=== PATIENT | male | born 1995 | race Asian ===

== ENCOUNTER 2017-08-13 02:39 | Emergency (ER) | payer OTHER ==
[~2017-08-13] VITALS: Ht 172.7 cm; Wt 83.9 kg
[2017-08-13 03:01] LABS: BASOPHILS % (AUTO) 1.9 % (0.0-2.0); EOSINOPHILS % (AUTO) 13.1 % (0.0-3.0); LYMPHOCYTES % (AUTO) 20.4 % (20.0-45.0); MEAN CORPUSCULAR HGB CONC 34.1 G/DL (32.0-36.0); MEAN CORPUSCULAR VOLUME 94 FL (80-99); MEAN PLATELET VOLUME 7.1 FL (6.5-10.1); MONOCYTES % (AUTO) 12.1 % (1.0-10.0); NEUTROPHILS % (AUTO) 52.6 % (45.0-75.0); PLATELET COUNT 348 K/UL (150-450); RED BLOOD COUNT 4.96 M/UL (4.70-6.10); RED CELL DISTRIBUTION WIDTH 11.6 % (11.6-14.8); WHITE BLOOD COUNT 6.8 K/UL (4.8-10.8)
[2017-08-13 03:07] VITALS: BP 126/73
[2017-08-13 03:11] LABS: ANION GAP 7 mmol/L (5-15); CALCIUM 8.7 MG/DL (8.5-10.1); CARBON DIOXIDE 28 MMOL/L (21-32); CHLORIDE 103 MMOL/L (98-107); CREATININE 0.9 MG/DL (0.55-1.30); GLOMERULAR FILTRATION RATE > 60 mL/min (>60); POTASSIUM 3.4 MMOL/L (3.5-5.1); SODIUM 138 MMOL/L (136-145)
[2017-08-13 03:16] LABS: ALANINE AMINOTRANSFERASE 16 U/L (12-78); ALBUMIN/GLOBULIN RATIO 0.9 (1.0-2.7); ALCOHOL 321 mg/dL; ASPARTATE AMINO TRANSFERASE 19 U/L (15-37); TOTAL PROTEIN 7.6 G/DL (6.4-8.2)
[2017-08-13 03:18] LABS: ACETAMINOPHEN < 2 MCG/ML (10-30)
[2017-08-13] MEDS ORDERED: ACETAMINOPHEN-1 EAC1 ORAL (04:37)
[2017-08-13 04:44] VITALS: BP 126/73
--- NOTE | 2017-08-13 05:23 | Emergency Room Report ---
History of Present Illness General Chief Complaint: Head, Face, Neck Trauma Source: Patient Present Illness HPI 21-year-old male presents ED for evaluation. cousin at bedside states that patient was drinking tonight at a bar and tripped and fell and hit his head. Patient presents with bruising over the right eye and swelling. Patient is unable to provide any additional history at this time. Show no signs of distress upon arrival. No other aggravating or leading factors. No other associated symptoms Allergies: Coded Allergies: EGG (Verified Allergy, Unknown, 08/13/17) LEGUMES (Verified Allergy, Unknown, 08/13/17) Patient History Past Medical History: none Past Surgical History: none Pertinent Family History: none Social History: Reports: alcohol use, Denies: smoking, drug use Immunizations: UTD Reviewed Nursing Documentation: PMH: Agreed, PSxH: Agreed Nursing Documentation-PMH Past Medical History Deferred: Pt Cognitively Impaired Review of Systems All Other Systems: limited Physical Exam Vital Signs Date Time Temp Pulse Resp B/P (MAP) Pulse Ox O2 Delivery O2 Flow Rate FiO2 08/13/17 02:40 97.9 91 16 124/74 67 Room Air Sp02 EP Interpretation: reviewed, normal General Appearance: lethargic, thin Head: other - bruising/swelling R eye Eyes: bilateral eye PERRL, bilateral eye EOMI ENT: normal ENT inspection Neck: normal inspection Respiratory: chest non-tender, lungs clear, normal breath sounds, speaking full sentences Cardiovascular #1: regular rate, rhythm, no edema Gastrointestinal: normal inspection Rectal: deferred Genitourinary: no CVA tenderness Musculoskeletal: normal inspection Neurologic: other - intoxicated Psychiatric: other - intoxicated Skin: normal inspection Lymphatic: normal inspection Medical Decision Making Diagnostic Impression: Primary Impression: Alcohol intoxication Qualified Codes: F10.929 - Alcohol use, unspecified with intoxication, unspecified Additional Impression: Facial fracture due to fall Qualified Codes: S02.92XA - Unspecified fracture of facial bones, initial encounter for closed fracture; W19.XXXA - Unspecified fall, initial encounter ER Course Hospital Course 21-year-old M presents to ED with altered mental status. facial bruisnig s/p fall. Differential diagnoses include: Psychosis, EtOH, drug abuse Clinical course patient placed on stretcher. 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 After initial history and physical ordered labs, IV fluids, CT brain and CT Facial Bones Labs reviewed-electrolytes okay, no leukocytosis, hemoglobin/hematocrit stable, ETOH elevated CT brain unremarkable; CT Facial Bones shows R zygomatic fx. no ocular entrapment patient allowed to sleep. Patient is now awake alert oriented x3, ambulating i. I feel this is a highly complex case requiring extensive working including EKG/Rhythm strip, Xray/CT/US, Blood/urine lab work, repeat exams while in ED, and administration of strong opiates/narcotics for pain control, admission to hospital or close patient follow up. Diagnosis - alcohol intoxication, facial fx due to fall Stable and discharged to home with Rx Tylenol #3. Followup with PMD. Return to ED if symptoms recur or worsen Labs Test 08/13/17 02:50 White Blood Count 6.8 K/UL (4.8-10.8) Red Blood Count 4.96 M/UL (4.70-6.10) Hemoglobin 15.9 G/DL (14.2-18.0) Hematocrit 46.5 % (42.0-52.0) Mean Corpuscular Volume 94 FL (80-99) Mean Corpuscular Hemoglobin 32.0 PG (27.0-31.0) Mean Corpuscular Hemoglobin Concent 34.1 G/DL (32.0-36.0) Red Cell Distribution Width 11.6 % (11.6-14.8) Platelet Count 348 K/UL (150-450) Mean Platelet Volume 7.1 FL (6.5-10.1) Neutrophils (%) (Auto) 52.6 % (45.0-75.0) Lymphocytes (%) (Auto) 20.4 % (20.0-45.0) Monocytes (%) (Auto) 12.1 % (1.0-10.0) Eosinophils (%) (Auto) 13.1 % (0.0-3.0) Basophils (%) (Auto) 1.9 % (0.0-2.0) Sodium Level 138 MMOL/L (136-145) Potassium Level 3.4 MMOL/L (3.5-5.1) Chloride Level 103 MMOL/L (98-107) Carbon Dioxide Level 28 MMOL/L (21-32) Anion Gap 7 mmol/L (5-15) Blood Urea Nitrogen 8 mg/dL (7-18) Creatinine 0.9 MG/DL (0.55-1.30) Estimat Glomerular Filtration Rate > 60 mL/min (>60) Glucose Level 130 MG/DL (74-106) Calcium Level 8.7 MG/DL (8.5-10.1) Total Bilirubin 0.3 MG/DL (0.2-1.0) Aspartate Amino Transf (AST/SGOT) 19 U/L (15-37) Alanine Aminotransferase (ALT/SGPT) 16 U/L (12-78) Alkaline Phosphatase 47 U/L (46-116) Total Protein 7.6 G/DL (6.4-8.2) Albumin 3.6 G/DL (3.4-5.0) Globulin 4.0 g/dL Albumin/Globulin Ratio 0.9 (1.0-2.7) Salicylates Level 3.8 ug/mL (2.8-20) Acetaminophen Level < 2 MCG/ML (10-30) Serum Alcohol 321 mg/dL CT/MRI/US Diagnostic Results CT/MRI/US Diagnostic Results #1: Imaging Test Ordered: CT Head Impression no acute process CT/MRI/US Diagnostic Results #2: Imaging Test Ordered: CT Facial Bones Impression Comminuted and displaced right-sided facial bone fractures including involvement of the right orbital floor, lateral orbital wall, anterior and posterior rivera of the maxillary sinus, and zygomatic arch. Last Vital Signs Date Time Temp Pulse Resp B/P (MAP) Pulse Ox O2 Delivery O2 Flow Rate FiO2 08/13/17 04:44 76 21 126/73 100 Room Air 08/13/17 03:07 97.9 Status: improved Disposition: HOME, SELF-CARE Condition: Stable Scripts Acetaminophen With Codeine (T#3) (TYLENOL #3 TAB*) Y Tab 1 TAB ORAL Q8H Y for For Pain, #20 TAB Prov: JW GARNER M.D. 08/13/17 Patient Instructions: Zygoma Fracture JW GARNER M.D. Aug 13, 2017 05:23
--- NOTE | 2017-08-13 09:09 | Diagnostic Imaging Report ---
Indication: Trauma with facial pain Technique: Continuous helical scanning was performed through the facial bones without contrast material. Axial and coronal 3 mm slices were generated. Dose: Total Dose Length Product - DLP [address] Dose Index - CTDIvol(s) 28.19 mGy. Automated exposure control was utilized for dose reduction. Findings: Examination demonstrates soft tissue swelling over the right side of the face. There is orbital emphysema and subcutaneous emphysema on the right. There is a complex depressed fracture of the anterior right maxillary sinus wall. There is also depression of the malar bone. Right lateral maxillary sinus fracture, orbital floor fracture, lateral orbital wall fracture, and right zygomatic arch fractures are also noted. There is herniation of some orbital contents into the right maxillary sinus. Rotated bone fragments are also present. There may be a small bone fragment impinging on the inferior rectus muscle. There is fluid in the right maxillary sinus. Mucoperiosteal thickening is noted in the left maxillary sinus. Ethmoid sinus opacification is noted. There is also fluid in the right sphenoid sinus. A mucus retention cyst or polyp is noted in the left sphenoid sinus. The nasal bone is intact. The remainder the study is unremarkable. Impression: Complex right-sided facial fracture involving the orbital floor, lateral orbital wall, lateral maxillary sinus wall, and zygoma (tripod or tetrapod fracture). The malar bone and anterior rivera of the maxillary sinus or depressed. Possible impingement on the right inferior rectus muscle by bone right area aircraft traumatic sinusitis in the right maxillary sinus. Probable inflammatory change in other paranasal sinuses as described. Orbital emphysema and right facial emphysema. The above report is concordant with preliminary reading by [employer] . The CT scanner at [facility] is accredited by the [employer] and the scans are performed using protocols designed to limit radiation exposure to as low as reasonably achievable to attain images of sufficient resolution adequate for diagnostic evaluation.
--- NOTE | 2017-08-13 09:10 | Diagnostic Imaging Report ---
Indication: Head trauma Technique: Continuous helical CT scanning of the head was performed without intravenous contrast material. Axial and coronal 5 mm sections were generated. Dose: Total Dose Length Product - DLP [address] Dose Index - CTDIvol(s) 70.38 mGy. Automated exposure control was utilized for dose reduction. Comparison:None. Findings: Study is degraded by motion artifact. The ventricular system is normal in size and configuration. There is no shift of midline structures. No abnormal extra-axial fluid collections are noted. There is no evidence of intracerebral bleeding. No other abnormal high or low density areas are noted within the brain. Facial fractures are noted on the right (see CT facial bones). Impression: Complex right facial fractures... see CT facial bones). Otherwise negative CT scan of the head without contrast material. The above report is concordant with preliminary reading by [employer] . The CT scanner at [facility] is accredited by the [employer] and the scans are performed using protocols designed to limit radiation exposure to as low as reasonably achievable to attain images of sufficient resolution adequate for diagnostic evaluation.
== END 2017-08-13 04:40 | disposition home or self-care (01) ==
LOC: EMR 02:49
DX: F10.129 Alcohol abuse with intoxication, unspecified (principal); S02.31XA Fracture of orbital floor, right side, initial encounter for closed fracture; S02.40CA Maxillary fracture, right side, initial encounter for closed fracture; S02.40EA Zygomatic fracture, right side, initial encounter for closed fracture; W01.0XXA Fall on same level from slipping, tripping and stumbling without subsequent striking against object, initial encounter; Y92.89 Other specified places as the place of occurrence of the external cause; Z91.012 Allergy to eggs; Z91.018 Allergy to other foods
CPT/HCPCS: 36415; 70450; 70486; 80053; 85025; 96374; 99284; G0480; 80329; 99285